=== PATIENT | female | born 1995 | race Caucasian/White ===

== ENCOUNTER 2020-08-29 12:30 | Emergency (ER) | payer OTHER, SELFPAY ==
[~2020-08-29] VITALS: Ht 160 cm; Wt 52.6 kg
[2020-08-29 12:44] VITALS: BP 149/89
--- NOTE | 2020-08-29 12:47 | NUR ---
PT WAITING OUTSIDE IN COVID TENT FOR MSE.
--- NOTE | 2020-08-29 12:56 | NUR ---
PT C/O BODY ACHES, AND HEADACHE STARTING TODAY. PT STATES SHE WENT TO A REUNION OVER THE WEEKEND. UNKNOWN IF SHE WAS IN CONTACT WITH ANY POSITIVE FOR COVID. ALSO C/O FEVER AND CHILLS. TOOK TYLENOL THIS AM AT 1000. AFEBRILE UPON ARRIVAL.
[2020-08-29 13:43] VITALS: BP 149/89
--- NOTE | 2020-08-29 13:43 | NUR ---
Patient discharged with v/s stable. Written and verbal after care instructions given and explained. Patient alert, oriented and verbalized understanding of instructions. Ambulatory with steady gait. All questions addressed prior to discharge. ID band removed. Patient advised to follow up with PMD. Rx of PROMETHAZINE, TYLENOL given. Patient educated on indication of medication including possible reaction and side effects. Opportunity to ask questions provided and answered.
--- NOTE | 2020-08-31 21:15 | NUR ---
Positive COVID-19 test results were received from lab. A copy of the test results were given to Infection Control.
== END 2020-08-29 13:43 | disposition home or self-care (01) ==
LOC: MED 12:30
DX: U07.1 COVID-19 (principal)
CPT/HCPCS: 99283; U0003

== ENCOUNTER 2023-04-20 14:04 | Emergency (ER) | payer OTHER ==
[~2023-04-20] VITALS: Ht 154.9 cm; Wt 58.1 kg
[2023-04-20 14:30] VITALS: BP 120/77; PULSE 92; RESP 20; TEMP 98; O2SAT 98
[2023-04-20 14:57] LABS: BASOPHILS % (AUTO) 0.3 % (0.0-2.0); EOSINOPHILS # (AUTO) 0.6 K/uL (0-0.4); EOSINOPHILS % (AUTO) 4.4 % (0.0-4.0); HEMATOCRIT 38.8 % (36-48); HEMOGLOBIN 12.5 g/dL (12.0-16.0); LYMPHOCYTES # (AUTO) 2.4 K/uL (2.5-16.5); LYMPHOCYTES % (AUTO) 18.8 % (20.5-51.1); MEAN CORPUSCULAR HEMOGLOBIN 26 pg (27-31); MEAN CORPUSCULAR HGB CONC 32 g/dL (33-37); MEAN CORPUSCULAR VOLUME 80.5 fL (80-94); MONOCYTES # (AUTO) 0.8 K/uL (0.8-1.0); MONOCYTES % (AUTO) 6.5 % (1.7-9.3); PLATELET COUNT (AUTO) 390 K/uL (140-450); RED BLOOD CELL COUNT(AUTO) 4.82 MIL/uL (4.20-5.40); RED CELL DISTRIBUTION WIDTH 15.5 % (11.6-13.7); WHITE BLOOD COUNT (AUTO) 12.9 K/uL (4.8-10.8)
[2023-04-20 15:26] LABS: ANION GAP 15.4 (8-16); CARBON DIOXIDE 26.5 mmol/L (21-32); CREATININE 0.7 mg/dL (0.6-1.3); POTASSIUM 3.9 mmol/L (3.5-5.1); TOTAL BILIRUBIN 0.5 mg/dL (0.0-1.0)
[2023-04-20 15:47] LABS: BILIRUBIN,URINE NEGATIVE (NEGATIVE); BLOOD, URINE 3+ (NEGATIVE); COLOR,URINE YELLOW (YELLOW); LEUKOCYTE ESTERASE ,URINE 3+ (NEGATIVE); NITRITE, URINE POSITIVE (NEGATIVE); UGLUCOSE NEGATIVE (NEGATIVE)
[2023-04-20 15:49] LABS: APPEARANCE,URINE CLOUDY (CLEAR)
[2023-04-20 15:58] LABS: RBC,URINE 11-20 (MOD) /HPF (0-5)
[2023-04-20] MEDS ORDERED: CEPH-588 PO (17:17)
[2023-04-20 17:54] VITALS: BP 119/78; PULSE 82; RESP 20; TEMP 98; O2SAT 99
--- NOTE | 2023-04-20 17:54 | NUR ---
Patient discharged with v/s stable. Written and verbal after care instructions FOR PYLENEPHRITIS given and explained. Patient alert, oriented and verbalized understanding of instructions. Ambulatory with steady gait. All questions addressed prior to discharge. ID band removed. Patient advised to follow up with PMD. Rx of KEFLEX given. Opportunity to ask questions provided and answered.
== END 2023-04-20 17:54 | disposition home or self-care (01) ==
LOC: MED 14:04
DX: N12 Tubulo-interstitial nephritis, not specified as acute or chronic (principal); Z79.899 Other long term (current) drug therapy; Z98.890 Other specified postprocedural states
CPT/HCPCS: 36415; 80053; 81001; 81025; 83690; 85025; 87086; 99283